=== PATIENT | female | born 1970 | race Caucasian/White ===

== ENCOUNTER 2021-09-27 18:03 | Emergency (ER) | payer BC ==
[2021-09-27] MEDS ORDERED: Albuterol/Ipratropium 3.0-0.5 MG/3 ML Neb Soln NEB ONE (18:50)
[2021-09-27] MEDS ORDERED: methylPREDNISolone Sodium Succinate 125 MG/2 ML SDV IM ONE (18:51)
--- NOTE | 2021-09-27 19:30 | EDM.PDOC ---
ED HPI GENERAL MEDICAL PROBLEM - General Chief Complaint: Respiratory Problem Stated Complaint: SOB,COUGH Time Seen by Provider: 09/27/21 18:35 Source of Information: Reports: Patient History Limitations: Reports: No Limitations - History of Present Illness INITIAL COMMENTS - FREE TEXT/NARRATIVE: Patient presented to the ED because of increasing cough and dyspnea for 2 days. She has a history of asthma and used her albuterol inhaler without any relief. Her cough is dry and there is no associated fever or chills. Treatments SIMPLEX OPERATOR: Reports: Breathing Treatments - Related Data Allergies Allergy/AdvReac Type Severity Reaction Status Date / Time Penicillins Allergy Difficulty Verified 09/27/21 18:37 Swallowing Home Meds: Home Meds Albuterol Sulfate [Albuterol Sulfate Hfa] 2 puff Q4H PRN 09/27/21 [History] Azithromycin [Zithromax] 500 mg PO DAILY #5 tab 09/27/21 [Rx] Fluticasone/Vilanterol [Breo Ellipta 100-25 MCG Inhalation Kit] 1 puff DAILY 09/27/21 [History] Guaifenesin/Pseudoephedrne HCl [Mucinex D ER 600-60 mg Tablet] 1 tab BID PRN 09/27/21 [History] predniSONE [Prednisone] 40 mg PO DAILY #10 tablet 09/27/21 [Rx] Past Medical History Respiratory History: Reports: Asthma, Pneumonia, Recurrent Gastrointestinal History: Reports: PUD Genitourinary History: Reports: None ETHANOL OPERATOR History: Reports: Other ETHANOL OPERATOR History: Neurological History: Reports: Migraines Psychiatric History: Reports: Depression Endocrine/Metabolic History: Reports: Obesity/BMI 30+ - Infectious Disease History Infectious Disease History: Reports: Chicken Pox, Novel Coronavirus - Past Surgical History Respiratory Surgical History: Reports: Other (See Below) Other Respiratory Surgeries/Procedures: L lobectomy Female Surgical History: Reports: Hysterectomy Social & Family History - Family History Family Medical History: No Pertinent Family History - Tobacco Use Tobacco Use Status *Q: Never Tobacco User - Caffeine Use Caffeine Use: Reports: Soda - Recreational Drug Use Recreational Drug Use: No ED ROS GENERAL - Review of Systems Review Of Systems: See Below Constitutional: Reports: No Symptoms HEENT: Reports: No Symptoms Respiratory: Reports: Shortness of Breath, Wheezing, Cough Cardiovascular: Reports: No Symptoms Endocrine: Reports: No Symptoms GI/Abdominal: Reports: No Symptoms : Reports: No Symptoms Musculoskeletal: Reports: No Symptoms Skin: Reports: No Symptoms Neurological: Reports: No Symptoms Psychiatric: Reports: No Symptoms ED EXAM, GENERAL - Physical Exam Exam: See Below Exam Limited By: No Limitations General Appearance: Alert, No Apparent Distress Ears: Normal External Exam, Normal Canal Nose: Normal Inspection, Normal Mucosa, No Blood Throat/Mouth: Normal Inspection, Normal Lips, Normal Teeth Head: Atraumatic, Normocephalic Neck: Normal Inspection, Supple, Non-Tender Respiratory/Chest: No Accessory Muscle Use, Rhonchi, Wheezing Cardiovascular: Normal Peripheral Pulses, Regular Rate, Rhythm, No Edema, No Gallop, No JVD, No Murmur, No Rub GI/Abdominal: Normal Bowel Sounds, Soft, Non-Tender, No Organomegaly, No Distention, No Abnormal Bruit Back Exam: Normal Inspection, Full Range of Motion Extremities: Normal Inspection, Normal Range of Motion, Non-Tender, No Pedal Edema, Normal Capillary Refill Neurological: Oriented, CN II-XII Intact, Normal Cognition, Normal Gait, Normal Reflexes, No Motor/Sensory Deficits Psychiatric: Normal Affect Course - Vital Signs Text/Narrative:: CXR-see result Duoneb x1 Solumedrol 125 mg IM x1 Last Recorded V/S: Last Vital Signs Temp 37.2 C 09/27/21 18:30 Pulse 77 09/27/21 19:55 Resp 20 09/27/21 19:55 BP 163/104 H 09/27/21 19:55 Pulse Ox 95 09/27/21 19:55 - Orders/Labs/Meds Meds: Medications Discontinued Medications Generic Name Dose Route Start Last Admin Trade Name Ca PRN Reason Stop Dose Admin Albuterol/Ipratropium 3 ml 09/27/21 18:50 09/27/21 19:01 Albuterol/Ipratropium 3.0-0.5 Mg/3 Ml Neb Soln NEB 09/27/21 18:51 3 ml ONETIME ONE Administration Methylprednisolone Sodium Succinate 125 mg 09/27/21 18:51 09/27/21 19:01 Methylprednisolone Sodium Succinate 125 Mg/2 Ml Sdv IM 09/27/21 18:52 125 mg ONETIME ONE Administration Departure - Departure Time of Disposition: 19:30 Disposition: Home, Self-Care 01 Condition: Good Clinical Impression: Asthma exacerbation - Discharge Information Prescriptions: predniSONE [Prednisone] 40 mg PO DAILY #10 tablet Azithromycin [Zithromax] 500 mg PO DAILY #5 tab Instructions: Asthma Attack Referrals: PCP,None [Primary Care Provider] - Forms: ED Department Discharge Additional Instructions: Please read discharge instructions on Asthma flare up Continue your albuterol inhaler Prednisone 40 mg daily for 5 days starting tomorrow Zithromax 500 mg daily for 5 days starting tomorrow Follow up as needed Sepsis Event Note (ED) - Evaluation Sepsis Screening Result: Possible Sepsis Risk
--- NOTE | 2021-09-28 10:52 | CR ---
CHEST ONE VIEW INDICATION: Cough, shortness of breath. FINDINGS: AP portable upright view of the chest was obtained 09/27/21 - no comparisons. The heart, mediastinum and bony thorax were unremarkable. There are some slightly heavy markings at the lung bases which may be fibrotic in nature, but make it difficult to exclude minimal patchy bronchopneumonia. However, no gross consolidating pneumonia or effusion was identified. IMPRESSION: No definite acute process, but cannot exclude patchy bronchopneumonia at the lung bases, especially on the left. MTDD
== END 2021-09-27 20:15 | disposition home or self-care (01) ==
LOC: FB.ED 18:03
DX: J45.901 Unspecified asthma with (acute) exacerbation (principal); E66.9 Obesity, unspecified; Z68.30 Body mass index [BMI] 30.0-30.9, adult; Z88.0 Allergy status to penicillin
CPT/HCPCS: 71045; 94640; 96372; 99285; J2930; J7620-GY

== ENCOUNTER 2022-03-14 06:44 | Day surgery (SDC) | payer BC ==
[2022-03-14] MEDS ORDERED: Propofol 200 MG/20 ML SDV IV ONE (06:45)
[2022-03-14] MEDS ORDERED: Midazolam 1 MG/ML 2 ML SDV IV ONE (06:45)
[2022-03-14] MEDS ORDERED: Lactated Ringers 1,000 ML IV SCH (07:00)
[2022-03-14] MEDS ORDERED: Sodium Chloride 0.9% 10 ML Syringe FLUSH PRN (07:00)
== END 2022-03-14 10:00 | disposition home or self-care (01) ==
LOC: FB.SDS 06:44
PROVIDERS: ATTEND Surgery
DX: Z12.11 Encounter for screening for malignant neoplasm of colon (principal); J45.909 Unspecified asthma, uncomplicated; F32.A Depression, unspecified; Z79.899 Other long term (current) drug therapy; Z88.0 Allergy status to penicillin
CPT/HCPCS: 00812; 45378; J2250; J2704; J7120

== ENCOUNTER 2024-02-13 17:00 | Emergency (ER) | payer BC ==
[2024-02-13] MEDS: Albuterol/Ipratropium 3.0-0.5 MG/3 ML Neb Soln NEB ONE (17:54)
[2024-02-13] MEDS ORDERED: Sodium Chloride 0.9% 10 ML Syringe FLUSH PRN (18:33)
[2024-02-13] MEDS: Albuterol 0.083% 2.5 MG/3 ML Neb Soln NEB ONE (18:55)
[2024-02-13] MEDS: methylPREDNISolone Sodium Succinate 125 MG/2 ML SDV IVPUSH ONE (18:55)
[2024-02-13 18:56] LABS: BASOPHILS PERCENT AUTO 0.8 % (0.2-1.5); EOSINOPHILS ABSOLUTE AUTO 0.4 x10-3/uL (0.0-0.8); EOSINOPHILS PERCENT AUTO 10.1 % (0.6-8.1); HEMATOCRIT 35.8 % (34.2-48.2); HEMOGLOBIN 11.7 g/dL (11.4-15.5); LYMPHOCYTES ABSOLUTE AUTO 1.4 x10-3/uL (1.0-4.4); LYMPHOCYTES PERCENT AUTO 33.9 % (18.4-52.1); MEAN CORPUSCULAR HEMOGLOBIN 28.1 pg (23.9-33.9); MEAN CORPUSCULAR HGB CONC 32.6 g/dL (31.9-34.8); MEAN CORPUSCULAR VOLUME 86.1 fL (76.7-100.5); MEAN PLATELET VOLUME 8.6 fL (7.1-12.4); MONOCYTES ABSOLUTE AUTO 0.5 x10-3/uL (0.3-1.0); MONOCYTES PERCENT AUTO 12.1 % (4.4-15.7); NEUTROPHILS ABSOLUTE AUTO 1.7 x10-3/uL (1.5-6.3); NEUTROPHILS PERCENT AUTO 43.1 % (30.8-76.2); PLATELET COUNT,PLT 278 x10(3)uL (151-488); RED BLOOD CELL COUNT 4.16 x10(6)uL (3.60-5.20); RED CELL DISTRIBUTION WIDTH 13.6 % (12.3-16.5)
[2024-02-13 18:58] LABS: BLOOD UREA NITROGEN,BUN 15 mg/dL (7-18); BUN/CREATININE RATIO 13.6 (9-20); CALCIUM 9.2 mg/dL (8.6-10.2); CARBON DIOXIDE,CO2 29 mmol/L (21-32); CHLORIDE,CL 104 mmol/L (100-110); CREATININE 1.1 mg/dL (0.55-1.02); ESTIMATED GFR 60 mL/min (>60); GLUCOSE RANDOM 112 mg/dL (80-116); POTASSIUM,K 3.8 mmol/L (3.5-5.3); SODIUM,NA 143 mmol/L (135-145)
[2024-02-13 19:04] LABS: ALANINE AMINOTRANSFERASE,ALT 34 U/L (12-36); ALBUMIN 3.8 g/dL (3.5-5.2); ALKALINE PHOSPHATASE 26 IU/L (56-112); ASPARTATE AMNIOTRANSFERASE,AST 20 IU/L (5-25); BILIRUBIN TOTAL 0.2 mg/dL (0.1-1.3); MAGNESIUM 1.8 mg/dL (1.8-2.5); PROTEIN TOTAL,TP 7.8 g/dL (6.0-8.0)
[2024-02-13 19:06] LABS: C-REACTIVE PROTEIN 1.18 mg/dL (<0.50); TROPONIN I 6.7 pg/mL (4.0-60.3)
[2024-02-13] MEDS: Azithromycin 500 MG Tab PO ONE (21:18)
== END 2024-02-13 21:27 | disposition home or self-care (01) ==
LOC: FB.ED 17:00
DX: J18.9 Pneumonia, unspecified organism (principal); J45.901 Unspecified asthma with (acute) exacerbation; E03.9 Hypothyroidism, unspecified; Z90.710 Acquired absence of both cervix and uterus; Z79.899 Other long term (current) drug therapy; Z88.0 Allergy status to penicillin
CPT/HCPCS: 36415; 71046; 80053; 83735; 84484; 85025; 85379; 86140; 93005; 93010; 94640; 96374; 99284; 99284-25; A9270-GY; J2930; J7620